=== PATIENT | male | born 1965 | race Two or more races ===

== ENCOUNTER 2017-04-19 07:11 | Day surgery (SDC) | payer OTHER ==
[~2017-04-19] VITALS: Ht 180.3 cm; Wt 86.2 kg
[2017-04-19] VITALS (8 sets, daily range): BP systolic 108–134; BP diastolic 69–94
[~2017-04-19 07:11] MED LIST: LR 1000ml 1,000 ML IVLG SCH
[2017-04-19] MEDS ORDERED: Glycopyrrolate 0.2mg/ml 1ml Vial ONE (07:12)
[2017-04-19] MEDS ORDERED: Propofol 200mg/20ml IV ONE (07:12)
[2017-04-19] MEDS ORDERED: Lidocaine 1% MPF 10mg/ml 5ml ONE (07:12)
[2017-04-19] MEDS ORDERED: Atropine Sulfate 0.4mg/ml inj ONE (07:12)
[2017-04-19] MEDS ORDERED: LR 1000ml ONE (07:12)
[2017-04-19] MEDS ORDERED: NKM (07:39)
--- NOTE | 2017-04-19 09:22 | Pre-Procedure Note/Attestation ---
Pre-Procedure Note/Attestation Complete Prior to Procedure Planned Procedure: not applicable Procedure Narrative: colon Indications for Procedure Pre-Operative Diagnosis: screen Attestation I attest that I discussed the nature of the procedure; its benefits; risks and complications; and alternatives (and the risks and benefits of such alternatives ), prior to the procedure, with the patient (or the patient's legal medical claims representative). I attest that, if there was a reasonable possibility of needing a blood transfusion, the patient (or the patient's legal medical claims representative) was given the [facility] standardized written summary, pursuant to the Xavier Yulissa Blood Safety Act ([place] Health and Safety Code # 1645, as amended). I attest that I re-evaluated the patient just prior to the surgery and that there has been no change in the patient's H&P, except as documented below: MADELINE YANEZ Apr 19, 2017 09:22
--- NOTE | 2017-04-19 09:23 | Short Stay Surgery H&P ---
History of Present Illness History of Present Illness Chief Complaint see H&P attached HPI Calderon Fox is a 51 year old male who was admitted on for Colon Screening Patient History Allergies: Coded Allergies: No Known Allergies (Unverified , 04/16/17) PAST MEDICAL HISTORY: Past Surgeries: Social History: Medication History Scheduled No Known Medications* (NKM - No Known Medications*), 0 ., (Reported) Physical Exam Vital Signs Last Vital Signs Date Time Temp Pulse Resp B/P (MAP) Pulse Ox O2 Delivery O2 Flow Rate FiO2 04/19/17 07:42 97.8 52 20 108/69 98 Room Air Plan Attestation Are the patient's medical conditions optimized for surgery? MADELINE YANEZ Apr 19, 2017 09:23
[2017-04-19] MEDS ORDERED: LR 1000ml 1,000 ML IVLG SCH (09:33)
--- NOTE | 2017-04-19 09:42 | Anethesia Preoperative Eval ---
Anesthesia Pre-op PMH/ROS General Date of Evaluation: Apr 19, 2017 Time of Evaluation: 08:56 Anesthesiologist: kashmir ASA Score: ASA 1 Mallampati Score Class I : Soft palate, uvula, fauces, pillars visible Class II: Soft palate, uvula, fauces visible Class III: Soft palate, base of uvula visible Class IV: Only hard plate visible Mallampati Classification: Class II Surgeon: fernando Diagnosis: colon screening Surgical Procedure: colonoscopy Anesthesia History: none Social History: smoking - nonsmoker Family History: no anesthesia problems Allergies: Coded Allergies: No Known Allergies (Unverified , 04/16/17) Medications: see eMAR Anesthesia Pre-op Phys. Exam Physician Exam Last Vital Signs Date Time Temp Pulse Resp B/P (MAP) Pulse Ox O2 Delivery O2 Flow Rate FiO2 04/19/17 07:42 97.8 52 20 108/69 98 Room Air Constitutional: NAD Neurologic: CN 2-12 intact Cardiovascular: RRR Respiratory: CTA Gastrointestinal: S/NT/ND Airway Exam Mallampati Score: Class II MO: full Neck: supple TMD: 2fb ROM: full Teeth: intact Anesthesia Pre-op A/P Risk Assessment & Plan Assessment: asa1 Plan: mac Status Change Before Surgery: No Pre-Antibiotics Drug: JUDAH Cantrell Apr 19, 2017 09:42
[2017-04-19] MEDS ORDERED: Atropine Inj 1mg/10ml Syr IV PRN (09:45)
[2017-04-19] MEDS ORDERED: DiphenhydrAMINE 50mg/ml Inj IVP PRN (09:45)
[2017-04-19] MEDS ORDERED: Midazolam 2mg/2ml Inj IVP PRN (09:45)
[2017-04-19] MEDS ORDERED: fentaNYL 100 mcg/2 mL IV PRN (09:45)
--- NOTE | 2017-04-19 10:43 | Immediate Post-Op Evaluation ---
Immediate Post-Op Evalulation Immediate Post-Op Evalulation Procedure: colonoscopy Date of Evaluation: Apr 19, 2017 Time of Evaluation: 10:18 IV Fluids: 475ml 0.9ns Blood Products: none Estimated Blood Loss: negligible Blood Pressure Systolic: 133 Blood Pressure Diastolic: 92 Pulse Rate: 55 Respiratory Rate: 18 O2 Sat by Pulse Oximetry: 100 Temperature (Fahrenheit): 98.3 Pain Score (1-10): 0 Nausea: No Vomiting: No Complications none Patient Status: awake, reacts, patent Hydration Status: adequate Drug: JUDAH Cantrell Apr 19, 2017 10:43
--- NOTE | 2017-04-19 10:45 | 48 Hour Post Anesthesia Eval ---
Post Anesthesia Evaluation Procedure: colonoscopy Date of Evaluation: Apr 19, 2017 Time of Evaluation: 10:20 Blood Pressure Systolic: 130 0: 89 Pulse Rate: 55 Respiratory Rate: 18 Temperature (Fahrenheit): 98.5 O2 Sat by Pulse Oximetry: 100 Airway: patent Nausea: No Vomiting: No Pain Intensity: 0 Hydration Status: adequate Cardiopulmonary Status: stable Post-Anesthesia Complications: none Follow-up care needed: N/A JUDAH ROSAS Apr 19, 2017 10:45
--- NOTE | 2017-04-20 07:15 | Procedure Note ---
DATE OF PROCEDURE: 04/19/2017 PROCEDURE: Screening colonoscopy. SURGEON: Gary Hernadez M.D. ANESTHESIA: Please see the separate anesthesiologist notes for details. PRE-ENDOSCOPIC DIAGNOSIS: Screening. POST-ENDOSCOPIC DIAGNOSIS: Normal colonoscopy with suboptimal preparation. PROCEDURE IN DETAIL: The procedure, its risks, indications, alternatives, and possible complications were explained to the patient and informed consent was obtained. The patient was then sedated in the left lateral decubitus position and a diagnostic upper endoscope was introduced through the oropharynx and advanced to the cecum. The cecum was identified by the appearance of the ileocecal valve and the appendiceal orifice. The colonoscope was then gradually withdrawn and the mucosa examined carefully. Examination of the colonic mucosa revealed no polyps or masses. Visualization was minimally obscured by about 5% colonic coverage with solid stool. Retroflexed view of the rectum was unremarkable. The colonoscope was removed and the patient was sent to recovery in good condition. COMPLICATIONS: None. RECOMMENDATIONS: 1. Outpatient followup. 2. Annual stool occult blood testing. Gary Hernadez M.D. DR: Analisa JOB#: [id number] CC: ELIER
--- NOTE | 2017-04-22 10:33 | Endoscopy Procedure Note ---
Endoscopy Procedure Note Indication for Procedure: screen Procedures Performed: colonoscopy Operative Findings/Diagnosis: normal Specimen: none Pt Tolerated Procedure Well: Yes Estimated Blood Loss: none Anesthesiologist: see report Anesthesia: MAC Medication Given: see anesthesia record Implant(s) used?: No 50 yrs or older w/o bx or poly: Yes 10yrs. F/U not recommended: No If not recommended, why?: Inadequate Prep 10 yrs. F/U needed: No 18 years or older w/prev. colo: No <3yrs. since last colonoscopy: No Med reason:<3 yrs.: System Reason:<3 yrs.: Last colonoscopy >= to 3yrs: Yes MADELINE YANEZ Apr 22, 2017 10:33
--- NOTE | 2017-04-22 10:34 | Brief Operative Note ---
Immediate Post Operative Note Operative Note Chief Complaint: screen Pre-op Diagnosis: screen Procedure: colon Post-op Diagnosis: normal Post-op Diagnosis: same as pre-op Surgeon: fernando Anesthesia: moderate sedation Specimen: none Complications: none Condition: stable Fluids: recorded Estimated Blood Loss: none Drains: none Implant(s) used?: No MADELINE YANEZ Apr 22, 2017 10:34
== END 2017-04-19 11:25 | disposition home or self-care (01) ==
LOC: GAS 07:11
DX: Z12.11 Encounter for screening for malignant neoplasm of colon (principal); Z83.3 Family history of diabetes mellitus
CPT/HCPCS: 45378; J0461; J2704; J7120; 94003; 94150